=== PATIENT | male | born 1945 | race Caucasian/White ===

== ENCOUNTER 2022-05-26 11:32 | Day surgery (SDC) | payer OTHER ==
[~2022-05-26] VITALS: Ht 175.3 cm; Wt 66.0 kg
[~2022-05-26 11:32] MED LIST: ASPI81CH PO; ATOR40TA PO; B-12500 MCG PO; CLOP75 PO; Flurbiprofen100 MG PO; Lopressor 25 mg25 MG PO; OXYACE7.5T PO; Preservision S1 EACH; TRAZ100 PO
== END 2022-05-26 14:04 | disposition home or self-care (01) ==
LOC: ORSCSDS 11:32
PROVIDERS: Surgery
PROC: 0DJD8ZZ Inspection of Lower Intestinal Tract, Via Natural or Artificial Opening Endoscopic (ICD-10-PCS; principal; 2022-05-26 13:00)
DX: R19.5 Other fecal abnormalities (principal); K57.30 Diverticulosis of large intestine without perforation or abscess without bleeding; E78.5 Hyperlipidemia, unspecified; Z72.0 Tobacco use; J44.9 Chronic obstructive pulmonary disease, unspecified; I25.10 Atherosclerotic heart disease of native coronary artery without angina pectoris; R06.02 Shortness of breath; Z87.891 Personal history of nicotine dependence; F41.9 Anxiety disorder, unspecified; Z86.010 Personal history of colon polyps; Z79.899 Other long term (current) drug therapy
CPT/HCPCS: J2704; J7120